=== PATIENT | female | born 1950 | race Caucasian/White ===

== ENCOUNTER 2024-08-03 12:57 | Emergency (ER) | payer OTHER, MEDICARE, SELFPAY ==
[2024-08-03] VITALS (7 sets, daily range): BP systolic 98–127; BP diastolic 59–101
[2024-08-03 13:29] LABS: % Basophils 0.3 % (0-2); % Eosinophils 1.5 % (0-6); % Lymphocytes 24.3 % (20.5-51.1); % Monocytes 8.7 % (1.7-9.3); % Neutrophils 64.2 % (42.2-75.2); Absolute Eosinophils 0.2 10^3/uL (0-0.7); Absolute Immature Granulocytes 0.1 10^3/uL (0-0.05); Absolute Lymphocytes 2.6 10^3/uL (1.2-3.4); Hematocrit 41.5 % (37.0-47.0); Hemoglobin 13.4 g/dL (12.0-16.0); Mean Corp Hgb Conc. 32.3 g/dL (33.0-37.0); Mean Corpuscular Hgb 29.3 pg (27.0-31.0); Mean Corpuscular Volume 90.8 fL (81.0-99.0); Mean Platelet Volume 9.7 fL (7.4-10.4); Nucleated Red Blood Cells % 0 %; Platelet Count 253 10^3/uL (130-400); Red Blood Cell Count 4.57 10^6/uL (4.20-5.40); White Blood Cell Count 10.9 10^3/uL (4.8-10.8)
[2024-08-03 13:42] LABS: ALT (SGPT) 14 U/L (0-35); AST (SGOT) 21 U/L (14-36); Albumin 4.2 g/dl (3.5-5.0); Alkaline Phosphatase 67 U/L (38-126); Blood Urea Nitrogen 30 mg/dl (7-17); Calcium 9.5 mg/dl (8.4-10.2); Carbon Dioxide 26 mmol/L (22-30); Glucose 83 mg/dl (70-99); Total Bilirubin 0.7 mg/dl (0.2-1.3); Total Protein 6.2 g/dl (6.3-8.2); eGFR 58.75
[2024-08-03 13:52] LABS: COVID-19 Antigen Negative (Negative)
[2024-08-03 14:34] LABS: Chloride 103 mmol/L (98-107); Potassium 4.3 mmol/L (3.5-5.1); Sodium 136 mmol/L (135-145)
--- NOTE | 2024-08-03 15:27 | ED.GENMED ---
History of Present Illness
General
Chief Complaint: Breathing Problem
Source: patient
Exam Limitations: none
Time Seen by Provider: 08/03/24 14:58
History of Present Illness
History of Present Illness:
73yoF with a history of cardiomyopathy, pacemaker, hypertension, and hyperlipidemia presenting for evaluation of shortness of breath. Symptoms began about a week ago. She reports intermittent dyspnea that seems to come on randomly. She had an
episode of shortness of breath the past 2 days which both occurred after eating lunch. She had kiwi both times which she does not usually eat although she denies any associated rash or throat itching. The episode today lasted about 30 minutes before
resolving. Patient went to the school nurse and her blood pressure was reportedly low. She is currently asymptomatic and feels great. She denies any chest pain or leg swelling. Of note, she had a cough about a week ago and was seen at urgent care.
CXR was reportedly normal although she was given a prescription for prednisone and antibiotics which she completed. She follows with [facility].
Phy Exam
General Physical Exam
General Presentation: well appearing and no apparent distress
General age: appears stated age
General Skin: warm and dry
General Habitus: normal
General Mental: alert
ENT Exam
ENT Exam: normocephalic
Cardiovascular Exam
Cardiovascular Exam: regular rate/rhythm, no edema and no murmur
Pulmonary Exam
Pulmonary Exam: lungs clear, no respiratory distress, no rales, no crackles, no rhonchi and no wheezing
Neurological Exam
Neurological Exam: alert
M[place] Coma Scale
Eye Opening: Spontaneous
Verbal Response: Oriented
Motor Response: Obeys Commands
GCS Total Score: 15
Skin Exam
Skin Exam: normal color and warm/dry
Psychiatric Exam
Psychiatric Exam: normal mood/affect
Scores
Heart Failure Risk
Heart Failure Risk Score: Not Applicable
Course
Orders/Labs/Results
Orders:
Orders
08/03/24 13:10
Chest [CR Chest - 2 Views ] Urgent
Comment:
Reason For Exam: trouble breathing
08/03/24 13:12
EKG [Electrocardiogram (*1)] Urgent
Reason for Study: Shortness of Breath
EKG- Treatment ONCE
08/03/24 13:17
COVID-19 Antigen Urgent
Source: Nasal Swab
Complete Blood Count/With Diff Urgent
Comprehensive Metabolic Panel Urgent
Influenza A+B Rapid Molecular Urgent
BIB[place] Source: Nasal Swab
Specimen Description:
08/03/24 14:59
pacemaker [Interrogate Pacemaker- Treatment] ONCE
08/03/24 15:12
Troponin I Urgent
08/03/24 15:31
D-Dimer Urgent
08/03/24 16:17
CT Chest PE Study Urgent
Comment:
Reason For Exam: SOB, elevated D-dimer
Abnormal Lab Results
08/03/24 08/03/24
13:17 15:31
WBC 10.9 H 10^3/uL
(4.8-10.8)
MCHC 32.3 L g/dL
(33.0-37.0)
Abs Immat Gran (auto) 0.1 H 10^3/uL
(0-0.05)
Absolute Neuts (auto) 7.0 H 10^3/uL
(1.4-6.5)
Absolute Monos (auto) 1.0 H 10^3/uL
(0.1-0.6)
Immature Gran % 1.0 H %
(0-0.5)
D-Dimer 2.12 H ug/mlFEU
(0.00-0.50)
BUN 30 H mg/dl
(7-17)
Total Protein 6.2 L g/dl
(6.3-8.2)
08/03/24 13:17
08/03/24 13:17
Vital Signs
Initial and Last Documented VS:
Initial Vital Signs
Temp Pulse Resp BP Pulse Ox
98.4 F 63 18 106/63 100
08/03/24 13:05 08/03/24 13:05 08/03/24 13:05 08/03/24 13:05 08/03/24 13:05
Last Documented Vital Signs
Temp Pulse Resp BP Pulse Ox
98.7 F 61 15 103/72 100
08/03/24 14:59 08/03/24 17:30 08/03/24 17:30 08/03/24 17:30 08/03/24 17:15
MDM/Problems Addressed
Differential Diagnosis Includes:
73yoF here with intermittent episodes of dyspnea x 1 week. Currently asymptomatic. Started with a cough which has since improved. No CP. No leg swelling. VSS. Oxygen saturation 100% on room air. Lungs CTA and respirations non-labored. Differential
diagnosis includes but is not limited to: viral illness, pneumonia, ACS, PE
Initial ED plan: Basic labs, viral testing, EKG, and CXR obtained in triage. Patient is positive for influenza A. CXR is clear without infiltrates. EKG shows AV paced rhythm. Will check troponin, D-dimer, and interrogate pacemaker.
*EKG
Interpreted by ED Provider?: Yes
EKG Intrepretation Date: 08/03/24
Heart Rate: 68
Rate: normal
Rhythm: av sequential
QRS Pattern: normal QRS
Ischemia: no ischemia
*Critical Care Note
Total Time (30-74mins, 75-104mins- exclusive of procedures): Not Applicable
Update Note
Update Note:
No events on pacemaker interrogation. Troponin WNL. D-dimer elevated and CTA chest subsequently ordered. CT negative for PE and other acute findings in the lung. There is a thyroid nodule as well as a splenic lesion seen incidentally. Patient
informed of these findings and given a copy of the radiology report. Patient remains asymptomatic on reassessment and oxygen saturation 99-100%. She is stable for discharge. Advised close f/u with PCP and ED return precautions discussed. Patient in
agreement with plan and was discharged in stable condition.
ED Attending Note
-
Portions of this chart may have been created with voice recognition software.� Occasional wrong word or��sound alike� substitutions may have occurred due to the inherent limitations of voice recognition software.
Discharge Plan
Departure
Patient Disposition: Home (Routine Discharge)
Date of Disposition: 08/03/24
Time of Disposition: 17:47
Patient with high blood pressure during this ER visit?: No
Discharge Problem:
Influenza A, Shortness of breath, Thyroid nodule
Instructions: Shortness of Breath (Dyspnea) (DC), Flu in adults - ED discharge instructions
Referrals:
Clare Santiago MD [Family Provider] -
Activity Restrictions/Additional Instructions:
Please call your family doctor tomorrow to schedule a follow-up appointment in the next 2-3 days. Return to the ER with any new or worsening symptoms.
You will need an outpatient ultrasound for the thyroid nodule seen on your CT scan.
Interventions
Interventions:
*Risk Screen - Suicide Last Done: 08/03/24 13:05
*General Assessment Last Done: 08/03/24 13:05
*Neglect/Abuse Screening Last Done: 08/03/24 13:05
ED- Fall Risk Assessment Last Done: 08/03/24 14:54
*ED COVID-19 Vaccine History Last Done: 08/03/24 13:05
*Nursing Disposition Last Done: 08/03/24 17:56
ED- Cardiac Assessment Last Done: 08/03/24 14:54
ED- Pulmonary Assessment Last Done: 08/03/24 14:54
Discharge Date and Time
Discharge Date/Time: 08/03/24 18:03
Print Language: PERSIAN
[2024-08-03 15:56] LABS: Troponin I < 0.012 ng/ml
[2024-08-03 15:57] LABS: D-Dimer 2.12 ug/mlFEU (0.00-0.50)
== END 2024-08-03 18:03 | disposition home or self-care (01) ==
LOC: EMR 12:57
PROVIDERS: Emergency Medicine; Physician Assistant; EMERGENCY PHYSICIAN Emergency Medicine; FAMILY PHYSICIAN Student in an Organized Health Care Education/Training Program
DX: J10.1 Influenza due to other identified influenza virus with other respiratory manifestations (principal); R06.02 Shortness of breath; E04.1 Nontoxic single thyroid nodule; Z11.52 Encounter for screening for COVID-19
CPT/HCPCS: 99285; 71046; 71275; 80053; 84484; 85025; 85379; 87502; 87811; 93005; Q9967